=== PATIENT | female | born 1970 | race Caucasian/White ===

== ENCOUNTER 2017-01-22 00:13 | Emergency (ER) | payer MEDICARE | END 2017-01-22 03:56 | disposition home or self-care (01) | LOC: ER 00:13 | DX: R10.11 Right upper quadrant pain (principal); E11.9 Type 2 diabetes mellitus without complications; F41.9 Anxiety disorder, unspecified; F32.9 Major depressive disorder, single episode, unspecified; R19.7 Diarrhea, unspecified; R11.0 Nausea; R05 Cough; F17.210 Nicotine dependence, cigarettes, uncomplicated; Z90.710 Acquired absence of both cervix and uterus; Z90.49 Acquired absence of other specified parts of digestive tract; Z95.1 Presence of aortocoronary bypass graft; Z79.899 Other long term (current) drug therapy; Z88.1 Allergy status to other antibiotic agents | CPT/HCPCS: 36415; 96374; 96375; Q9967 ==

== ENCOUNTER 2017-02-02 23:02 | Emergency (ER) | payer MEDICARE | END 2017-02-02 23:41 | disposition home or self-care (01) | LOC: ER 23:02 | DX: J20.9 Acute bronchitis, unspecified (principal); I25.10 Atherosclerotic heart disease of native coronary artery without angina pectoris; E11.9 Type 2 diabetes mellitus without complications; F41.9 Anxiety disorder, unspecified; F32.9 Major depressive disorder, single episode, unspecified; Z95.1 Presence of aortocoronary bypass graft; F17.210 Nicotine dependence, cigarettes, uncomplicated; Z79.899 Other long term (current) drug therapy; Z88.8 Allergy status to other drugs, medicaments and biological substances | CPT/HCPCS: 87502 ==

== ENCOUNTER 2017-05-12 13:54 | Emergency (ER) | payer MEDICARE | END 2017-05-12 18:04 | disposition home or self-care (01) | LOC: ER 13:54 | DX: K25.9 Gastric ulcer, unspecified as acute or chronic, without hemorrhage or perforation (principal); J90 Pleural effusion, not elsewhere classified; F17.200 Nicotine dependence, unspecified, uncomplicated; Z90.49 Acquired absence of other specified parts of digestive tract; Z95.1 Presence of aortocoronary bypass graft | CPT/HCPCS: 36415; 96374; 96375; 96376 ==